=== PATIENT | female | born 1960 | race Caucasian/White ===

== ENCOUNTER 2016-10-12 14:11 | Emergency (ER) | payer MEDICARE, BC ==
--- NOTE | ~2016-10-12 | CR72 ---
[facility] A Service of [facility] & [facility] RADIOLOGY TEXT RESULTS PATIENT: JANET MEZA LOCATION: [facility] : 60 UNIT #: [id number] AGE: [address]: Bill Dominique MD SEX: F ORDER DR: [id number] [facility] [address] [place], [place] [address] [id number] E MR#: [id number] Acc #: [id number] NAME: JANET MEZA. : 1960 SEX: F STUDY DATE/TIME: 10/12/2016 12:22 UNIT: [facility] ROOM: STUDY DESCRIPTION: CR Chest Single View Portable Attending Physician: Bill Dominique M.D. Ordering Physician: Bill Dominique M.D. Primary Care Physician: Alia De León M.D. MEDICAL IMAGING REPORT This report is preliminary unless electronic signature is present EXAM Portable chest HISTORY Cough, nausea vomiting and diarrhea for the past week. COMPARISON 08/13/2014 TECHNIQUE Single AP view of the chest was obtained. FINDINGS A single AP portable view of the chest shows both lungs to be clear. The heart is normal in size. The mediastinal contour is normal. No significant bone abnormalities are seen. IMPRESSION Normal portable chest. Dictated by... Derek Grady M.D. THIS IS AN ELECTRONICALLY VERIFIED REPORT Derek Grady M.D. at 10/12/2016 6:02 PM RLF/gail TD: 10/12/2016 14:13 JOB #: [id number] MEDICAL IMAGING REPORT Page 1 of 1 COPY
[2016-10-12 12:53] LABS: INFLUENZA A POS (NEG); INFLUENZA B NEG (NEG)
[2016-10-12 12:56] LABS: URINE SOURCE CLEAN CATCH
[2016-10-12 13:02] LABS: URINE APPEARANCE TURBID; URINE BILIRUBIN NEG (NEG); URINE BLOOD 1+ (NEG); URINE COLOR DK YELLOW; URINE GLUCOSE NEG (NEG); URINE KETONE 2+ (NEG); URINE LEUKOCYTE ESTERASE 2+ (NEG); URINE NITRATE POS (NEG); URINE PH 5.5 (5-8); URINE PROTEIN 1+ (NEG); URINE SPECIFIC GRAVITY 1.026 (1.003-1.035)
[2016-10-12 13:04] LABS: CULTURE INDICATED? YES; URINE BACTERIA AUWI 2+ (NEGATIVE); URINE SQUAMOUS EPITHELIAL CELL MOD /[HPF]
[2016-10-12 13:17] LABS: BASOPHIL# 0.1 X10e3 (0-0.3); BASOPHIL% 0.5 % (0-2.5); EOSINOPHIL% 0.1 % (0.0-7.0); HEMATOCRIT 48.5 % (35.0-45.0); HEMOGLOBIN 15.3 gm/dL (12.0-16.0); LYMPHOCYTE# 0.9 X10e3 (1.0-3.5); LYMPHOCYTE% 8.1 % (17.0-45.0); MEAN CELL VOLUME 85.7 FL (83-96); MEAN CORPUSCULAR HEMOGLOBIN 27.1 PG (28-34); MEAN CORPUSCULAR HGB CONC 31.6 g/dL (30-36); MEAN PLATELET VOLUME 8.2 FL (6.5-11.5); MONOCYTE# 1.1 X10e3 (0-1.0); MONOCYTE% 10.4 % (3.0-12.0); NEUTROPHIL# 8.9 X10e3 (1.5-7.1); NEUTROPHIL% 80.9 % (40-75); PLATELET COUNT 193 X10e3 (140-420); RED BLOOD COUNT 5.66 X10e (3.90-5.30); RED CELL DISTRIBUTION WIDTH 15.6 % (11.0-15.5)
[2016-10-12 13:17] LABS: U HYALINE CASTS AUWI 0-2 /[LPF]; URINE MUCUS PRESENT
[2016-10-12 13:18] LABS: DIFF IND NO
[2016-10-12 13:55] LABS: ALBUMIN SERUM 4.3 g/dL (3.5-5.0); BILIRUBIN, DIRECT 0.1 mg/dL (0.0-0.2); BILIRUBIN,INDIRECT 0.4 mg/dL (0.0-0.9); BILIRUBIN,TOTAL 0.5 mg/dL (0.2-2.0); BUN/CREATININE RATIO 26.25; CALCIUM SERUM 9.4 mg/dL (8.4-10.2); CREATININE SERUM 0.8 mg/dL (0.6-1.4); GLOM FILT RATE Estimated 82.5 mL/min (>60); POTASSIUM 3.4 mmol/L (3.5-5.1); PROTEIN TOTAL SERUM 8.4 g/dL (6.0-8.3)
[~2016-10-12 14:11] MED LIST: AMITRIPTYLINE H50 MG PO; AMITRYPTYLINE PO; ATARAX PO; AXERT12.5 MG PO; BYSTOLIC10 MG PO; CYMBALTA PO; CYMBALTA30 M1 PO; CYMBALTA30 MG PO; DILAUDID; ELMIRON100 MG PO; FIORICET 50-321 EACH PO; IMITREX PO; LOVASTATIN10 MG PO; LYRICA75 MG PO; MIRALAX17 GM DOB; MIRALAX255 GM PO; MOBIC PO; NEXIUM PO; PHENERGAN25 MG PO; PYRIDIUM PO; PYRIDIUM100 MG PO; SYNTHROID PO; TOPAMAX PO; TOPAMAX200 MG PO; TOPROL XL PO; ZESTRIL10 M1 PO; [UNRECOGNIZED DRUG - REMARK]
== END 2016-10-12 14:20 | disposition home or self-care (01) ==
LOC: CED 14:11
PROVIDERS: Emergency Medicine
DX: J09.X2 Influenza due to identified novel influenza A virus with other respiratory manifestations (principal); N30.00 Acute cystitis without hematuria; I10 Essential (primary) hypertension; Z90.49 Acquired absence of other specified parts of digestive tract; Z90.89 Acquired absence of other organs; Z88.5 Allergy status to narcotic agent; Z88.0 Allergy status to penicillin; Z88.2 Allergy status to sulfonamides; Z88.8 Allergy status to other drugs, medicaments and biological substances; Z91.040 Latex allergy status; Z79.899 Other long term (current) drug therapy
CPT/HCPCS: 36415; 71010; 80048; 80076; 81003; 83690; 85025; 87086; 87088; 87186; 87804; 96374; 96375; 99284; J1100; J1170; J1200; J2765

== ENCOUNTER 2016-12-29 11:30 | Inpatient (IN) | payer MEDICARE, BC ==
--- NOTE | ~2016-12-29 | CR72 ---
[facility] A Service of [facility] & [facility] RADIOLOGY TEXT RESULTS PATIENT: JANET MEZA LOCATION: [facility] : 60 UNIT #: [id number] AGE: [address]: Chris Gillis MD SEX: F ORDER DR: [id number] [facility] [address] [place], [place] [address] [id number] E MR#: [id number] Acc #: [id number] NAME: JANET MEZA : 1960 SEX: F STUDY DATE/TIME: 12/29/2016 12:45 UNIT: [facility] ROOM: STUDY DESCRIPTION: CR Chest Single View Portable Attending Physician: Chris Gillis M.D. Ordering Physician: Chris Gillis M.D. Primary Care Physician: Alia De León M.D. MEDICAL IMAGING REPORT This report is preliminary unless electronic signature is present EXAM Chest, portable, 12/29/2016, 1245 hours. CLINICAL HISTORY 56-year-old with coughing, sneezing, and lethargy today, history of hypertension. COMPARISON 10/12/2016 FINDINGS Portable upright chest demonstrates lower lung volumes. Allowing for this, there is stable mild cardiomegaly. Aortic contours are normal. Lungs appear clear and there are no effusions. IMPRESSION Lower lung volumes than on 10/12/2016. No acute cardiopulmonary findings. Dictated by... Dee Haq M.D. THIS IS AN ELECTRONICALLY VERIFIED REPORT Dee Haq M.D. at 12/29/2016 4:01 PM SHANT/tera TD: 12/29/2016 15:25 JOB #: [id number] MEDICAL IMAGING REPORT Page 1 of 1 COPY
--- NOTE | ~2016-12-29 | DS ---
Unit #: [id number] #: [id number] Patient: JAENT MEZA [id number] [address] [address] [id number] MR#: [id number] NAME: JANET MEZA. ROOM: 331 Age: 56 Sex: F Admission Date: 12/29/2016 : 1960 Discharge Date: 12/31/2016 Attending Physician: Jaden Muñoz M.D. Primary Care Physician: Alia De León M.D. DISCHARGE SUMMARY DISCHARGE DIAGNOSES 1. Medication-induced encephalopathy. 2. Chronic pain syndrome. HOSPITAL COURSE The patient is a 56-year-old female with a pain pump who is managed for chronic pain. She presented to [facility] on 12/29/16 secondary to some confusion. The patient was seen in the emergency department by pain management, and her implanted Dilaudid pump was modified such that her dosage of 9 mg per day was reduced to 3 mg per day. Over the course of 24 hours the patient's mental status improved to baseline. She states that she did not take any medications apart from her typical prescriptions. She does state, however, that on the day of admission she got up much earlier than she typically gets up to take her child to school, when normally she finds herself unable to get out of bed before noon or 1 p.m. It seems entirely possible that her mental status changes were a result of her typical medical regimen, which has her normally sleep until into the afternoon. Given the decrease in the rate of her pain medication, the patient did begin withdrawals. I did then start the patient on oral medication, which she has tolerated well. She is being discharged home on said oral medication to prevent withdrawal until she can follow up with her pain medicine physician. She states she has a previously scheduled appointment on 01/02/17, which she will keep. DISCHARGE MEDICATIONS 1. Oxycodone 30 mg p.o. q.8 hours. 2. Hyoscyamine 0.125 mg p.o. q.6 hours. 3. Topamax 200 mg p.o. b.i.d. 4. Detrol 2 mg p.o. b.i.d. 5. Imipramine 50 mg p.o. q.h.s. 6. Pentosan polysulfate sodium 200 mg p.o. b.i.d. 7. Zestril 10 mg p.o. daily. 8. Amitriptyline 50 mg p.o. t.i.d. 9. Cymbalta 30 mg p.o. t.i.d. FOLLOWUP As mentioned above, the patient should follow up with her pain management provider on 01/02/17. Unit #: [id number] #: [id number] Patient: JANET MEZA Dictated by... Nancy Luciano/benigno TD: 01/02/2017 09:42 JOB #: [id number] DISCHARGE SUMMARY Page 1 of 1 X Jaden Muñoz MD X DISCHARGE SUMMARY
--- NOTE | ~2016-12-29 | CT71 ---
[facility] A Service of [facility] RADIOLOGY TEXT RESULTS PATIENT: JANET MEZA LOCATION: [facility] 331- : 60 UNIT #: [id number] AGE: [address]: Jaden Muñoz MD SEX: F ORDER DR: [id number] [id number] [facility] [place], [place] [address] [id number] E MR#: [id number] Acc #: [id number] NAME: JANET MEZA : 1960 SEX: F STUDY DATE/TIME: 12/29/2016 13:11 UNIT: [facility] ROOM: STUDY DESCRIPTION: CT Head Wo Contrast Attending Physician: Chris Contreras M.D. Ordering Physician: Chris Contreras M.D. Primary Care Physician: Alia De León M.D. MEDICAL IMAGING REPORT This report is preliminary unless electronic signature is present EXAM CT brain without contrast media, 12/29. COMPARISON 12/23/15 HISTORY Confusion, lethargy beginning today on pain pump and sleeping pills. TECHNIQUE Axial imaging of the brain was performed without contrast media and directly compared to the patient's last study. This CT exam was performed with one or more of the following radiation dose reduction techniques: automatic exposure control, adjustment of mA and/or kV according to patient size, and iterative reconstruction. FINDINGS Ventricular size and configuration is normal. No intra or extraaxial mass lesions, fluid collections or mass effect are seen. No focal areas of low attenuation or evidence of acute intracranial hemorrhage. Bone windows reviewed. There is very mild sinus disease in the ethmoid air cells. CONCLUSION Mild ethmoid sinus disease, otherwise, normal noncontrast CT of the brain. Dictated by... Holden Sutton M.D. THIS IS AN ELECTRONICALLY VERIFIED REPORT Holden Sutton M.D. at 01/01/2017 5:11 PM Simon TD: 12/29/2016 16:18 [facility] A Service of [facility] RADIOLOGY TEXT RESULTS PATIENT: JANET MEZA LOCATION: [facility] 331-01 : 60 UNIT #: [id number] AGE: [address]: Jaden Muñoz MD SEX: F ORDER DR: JOB #: [id number] MEDICAL IMAGING REPORT Page 1 of 1 COPY
--- NOTE | ~2016-12-29 | EKG ---
PATIENT: JANET MEZA UNIT #: [id number] Ventricular Rate: 113 BPM Atrial Rate: 113 BPM P-R Interval: 154 ms QRS Duration: 98 ms Q-T Interval: 346 ms QTC Calculation(Bezet): 474 ms P [place]: 77 degrees Calculated R [place]: 42 degrees Calculated T [place]: 37 degrees Diagnosis Line: Sinus tachycardia Diagnosis Line: Nonspecific T wave abnormality Diagnosis Line: Abnormal ECG Diagnosis Line: Poor data quality Diagnosis Line: When compared with ECG of 27-MAY-2013 11:17, Diagnosis Line: Criteria for Inferior infarct are no longer Diagnosis Line: Present Diagnosis Line: Nonspecific T wave abnormality no longer evident Diagnosis Line: in Inferior leads Diagnosis Line: Confirmed by BELIA KELLER MD ([id number]) on Diagnosis Line: 12/29/2016 4:28:31 PM INTERPRETING MD: BALDO
--- NOTE | ~2016-12-29 | HP ---
Unit #: [id number] #: [id number] Patient: JANET MEZA [id number] [address] [place], [place] [address] [id number] E MR#: [id number] NAME: JANET MEZA ROOM: Age: 56 Sex: F Admission Date: 12/29/2016 : 1960 Attending Physician: Chris Contreras M.D. Primary Care Physician: Alia De León M.D. HISTORY AND PHYSICAL CHIEF COMPLAINT Altered mental status. HISTORY OF PRESENT ILLNESS The patient is a 56-year-old female with a history of back surgery and pain pump, managed by Dr. Zhang and Dr. Moon. The patient was brought to the emergency room complaining of altered mental status. The patient is unable to provide any history and history is obtained by speaking with the patient's and father at the bedside and the emergency room physician. The patient is not able to stay awake since this morning. The patient had a syncopal episode in the bathroom earlier today. The patient denies taking any oral pain pills and sleeping pills. However, from EMS they said the patient was lethargic because of pain pills and sleeping pills. The family is concerned that the pain pump is malfunctioning and is not working. The patient has been on a standard dose of Dilaudid for the last two years. The patient denies any fever, chills, nausea, vomiting, shortness of breath. PAST MEDICAL HISTORY 1. Hypertension. 2. Hypothyroidism. 3. Pain pump. PAST SURGICAL HISTORY 1. Two back surgeries. 2. Left foot bone spur. 3. Right foot bunionectomy. 4. Hernia repair. 5. Tonsils removed. SOCIAL HISTORY No history of smoking. No alcohol or illicit drug abuse. FAMILY HISTORY Reviewed and none. ALLERGIES Apples, sulfa, erythromycin, ketorolac. HOME MEDICATIONS 1. The patient has a pain pump with Dilaudid. 2. Migraine medications. Unit #: [id number] #: [id number] Patient: JANET MEZA 3. Imipramine. 4. Hyoscyamine. 5. Topamax. 6. Detrol. 7. Lisinopril. 8. Amitriptyline. 9. Cymbalta. 10. [place] PHYSICAL EXAMINATION GENERAL: The patient is lying on the bed, not in acute distress. VITALS: Temperature 98.7, pulse 101, respiratory rate 16, blood pressure 130/80, saturating 98% on room air. HEENT: Head atraumatic, normocephalic. Pupils equal, round and reactive to light and accommodation. Extraocular movements are intact. NECK: Supple. LUNGS: Decreased air entry at the bases. HEART: Regular rate and rhythm. ABDOMEN: Soft. Positive bowel sounds. EXTREMITIES: No cyanosis or clubbing. NEUROLOGIC: Lethargic. Unable to answer questions. DIAGNOSTIC STUDIES IMAGING: CT of the head is negative. Chest x-ray shows low lung volumes. No acute cardiopulmonary process. LABORATORY: Ammonia 18, lactic acid 1.3, sodium 140, potassium 3.5, chloride 107, bicarb 27, glucose 93, BUN 12, creatinine 0.8. AST 15, ALT 15, alkaline phosphatase 52, albumin 3.9, INR 1. White blood cell count 8.2, hemoglobin 12.3, hematocrit 39.5, platelets 273, glucose 120. ASSESSMENT 1. Altered mental status. 2. Pain pump malfunction. 3. Overdose. PLAN Admit to observation. The patient will be seen by pain management for the pain pump malfunction. The patient received Narcan in the emergency room and responded well. Repeat labs again in the morning. Further recommendations will follow. Dictated by Nancy Mendoza TD: 12/29/2016 16:00 JOB #: [id number] Unit #: [id number] #: [id number] Patient: JANET MEZA HISTORY AND PHYSICAL Page 1 of 1 X MIGNON FERNANDES MD HISTORY AND PHYSICAL
[2016-12-29 13:37] LABS: BASOPHIL# 0.1 X10e3 (0-0.3); BASOPHIL% 0.9 % (0-2.5); EOSINOPHIL# 0.5 X10e3 (0-0.7); EOSINOPHIL% 5.9 % (0.0-7.0); HEMATOCRIT 39.5 % (35.0-45.0); HEMOGLOBIN 12.3 gm/dL (12.0-16.0); LYMPHOCYTE# 2.6 X10e3 (1.0-3.5); MEAN CELL VOLUME 87.3 FL (83-96); MEAN CORPUSCULAR HEMOGLOBIN 27.3 PG (28-34); MEAN CORPUSCULAR HGB CONC 31.2 g/dL (30-36); MEAN PLATELET VOLUME 8.4 FL (6.5-11.5); MONOCYTE# 0.8 X10e3 (0-1.0); MONOCYTE% 10.3 % (3.0-12.0); NEUTROPHIL# 4.2 X10e3 (1.5-7.1); NEUTROPHIL% 50.9 % (40-75); PLATELET COUNT 273 X10e3 (140-420); RED BLOOD COUNT 4.52 X10e (3.90-5.30); RED CELL DISTRIBUTION WIDTH 15.7 % (11.0-15.5); WHITE BLOOD COUNT 8.2 X10e3 (4.0-10.5)
[2016-12-29 13:39] LABS: DIFF IND NO
[2016-12-29 13:41] LABS: PROTHROMBIN TIME (PATIENT) 10.6 SECONDS (10.0-11.7)
[2016-12-29 13:53] LABS: ALBUMIN SERUM 3.9 g/dL (3.5-5.0); ALKALINE PHOSPHATASE 52 U/L (32-92); ALT (SGPT) 15 U/L (10-40); AST (SGOT) 15 U/L (10-42); BILIRUBIN,TOTAL 0.2 mg/dL (0.2-2.0); BLOOD UREA NITROGEN 12 mg/dL (9-23); CALCIUM SERUM 9.1 mg/dL (8.4-10.2); CARBON DIOXIDE 27 mmol/L (22-31); CHLORIDE 107 mmol/L (100-111); CREATININE SERUM 0.8 mg/dL (0.6-1.4); GLOM FILT RATE Estimated 82.5 mL/min (>60); GLUCOSE FASTING 93 mg/dL (70-110); POTASSIUM 3.5 mmol/L (3.5-5.1); PROTEIN TOTAL SERUM 7.5 g/dL (6.0-8.3); SODIUM 140 mmol/L (135-145)
[2016-12-29] MEDS ORDERED: CYMBALTA30 M1 PO (13:58)
[2016-12-29] MEDS ORDERED: LISINOPRIL PO (13:58)
[2016-12-29] MEDS ORDERED: PATIENT'S PHARMACY (13:58)
[2016-12-29] MEDS ORDERED: ELMIRON100 MG PO (13:58)
[2016-12-29] MEDS ORDERED: AMITRIPTYLINE H50 MG PO (13:58)
[2016-12-29] MEDS ORDERED: TOFRANIL PO (13:59)
[2016-12-29] MEDS ORDERED: TOPAMAX PO (14:01)
[2016-12-29] MEDS ORDERED: DETROL2 M1 PO (14:01)
[2016-12-29] MEDS ORDERED: LEVSIN0.125 M2 PO (14:01)
[2016-12-29 14:02] LABS: ALCOHOL BLOOD <5 mg/dL (0); BILIRUBIN, DIRECT <0.1 mg/dL (0.0-0.2); BILIRUBIN,INDIRECT 0.1 mg/dL (0.0-0.9)
[2016-12-29 23:09] LABS: URINE SOURCE CLEAN CATCH
[2016-12-29 23:24] LABS: URINE APPEARANCE CLEAR; URINE BILIRUBIN NEG (NEG); URINE BLOOD NEG (NEG); URINE COLOR YELLOW; URINE GLUCOSE NEG (NEG); URINE KETONE NEG (NEG); URINE LEUKOCYTE ESTERASE NEG (NEG); URINE NITRATE NEG (NEG); URINE PH 7.5 (5-8); URINE PROTEIN NEG (NEG); URINE SPECIFIC GRAVITY 1.014 (1.003-1.035); URINE UROBILINOGEN 0.2 MG/DL (NEG)
[2016-12-29 23:26] LABS: CULTURE INDICATED? NO
[2016-12-29 23:34] LABS: AMPHETAMINE NEG (NEG); BARBITURATES NEG (NEG); BENZODIAZEPINES NEG (NEG); COCAINE NEG (NEG); MARIJUANA NEG (NEG); OPIATES POS (NEG); TRICYCLIC ANTIDEPRESSANTS POS (NEG); U METHADONE NEG (NEG)
[2016-12-30 05:25] LABS: BASOPHIL# 0.1 X10e3 (0-0.3); BASOPHIL% 0.7 % (0-2.5); EOSINOPHIL# 0.4 X10e3 (0-0.7); EOSINOPHIL% 5.1 % (0.0-7.0); HEMATOCRIT 40.7 % (35.0-45.0); HEMOGLOBIN 12.7 gm/dL (12.0-16.0); LYMPHOCYTE# 2.3 X10e3 (1.0-3.5); LYMPHOCYTE% 30.5 % (17.0-45.0); MEAN CELL VOLUME 87.3 FL (83-96); MEAN CORPUSCULAR HEMOGLOBIN 27.1 PG (28-34); MEAN CORPUSCULAR HGB CONC 31.1 g/dL (30-36); MEAN PLATELET VOLUME 8.1 FL (6.5-11.5); MONOCYTE# 0.7 X10e3 (0-1.0); MONOCYTE% 9.1 % (3.0-12.0); NEUTROPHIL# 4.2 X10e3 (1.5-7.1); NEUTROPHIL% 54.6 % (40-75); PLATELET COUNT 260 X10e3 (140-420); RED BLOOD COUNT 4.67 X10e (3.90-5.30); RED CELL DISTRIBUTION WIDTH 15.6 % (11.0-15.5); WHITE BLOOD COUNT 7.7 X10e3 (4.0-10.5)
[2016-12-30 05:27] LABS: DIFF IND NO
[2016-12-30 05:43] LABS: BUN/CREATININE RATIO 18.57; CALCIUM SERUM 8.9 mg/dL (8.4-10.2); CREATININE SERUM 0.7 mg/dL (0.6-1.4); GLOM FILT RATE Estimated 96.9 mL/min (>60); POTASSIUM 4.4 mmol/L (3.5-5.1)
[2016-12-31] MEDS ORDERED: OXYCONTIN30 MG PO (12:03)
== END 2016-12-31 13:43 | disposition home or self-care (01) | DRG 91 ==
LOC: CED 11:30 → CEDOF 15:20 → CED 16:05 → CEDOF 16:05 → C3A PCU 17:22 → CEDOF 12-30 13:08 → C3A PCU 12-30 13:08 → CED 12-30 13:08 → C3A PCU 12-30 13:08
PROVIDERS: Emergency Medicine; Internal Medicine
DX: T85.695A Other mechanical complication of other nervous system device, implant or graft, initial encounter (principal); G92 Toxic encephalopathy; I10 Essential (primary) hypertension; E03.9 Hypothyroidism, unspecified; Z88.2 Allergy status to sulfonamides; Z91.018 Allergy to other foods; Y82.9 Unspecified medical devices associated with adverse incidents; T50.901A Poisoning by unspecified drugs, medicaments and biological substances, accidental (unintentional), initial encounter; G89.29 Other chronic pain
CPT/HCPCS: 70450; 71010; 80048; 80076; 80307; 81003; 82140; 82947; 83605; 85025; 85610; 87040; 93005; 99291; G0480; J1170; J1650